=== PATIENT | female | born 2000 | race Hispanic/Latino ===

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

== ENCOUNTER → 2019-06-29 | Outpatient (CLI) | payer BC ==
[2019-06-29 11:56] LABS: HEMOGLOBIN 12.4 g/dl (12.0-15.5); MEAN CORPUSCULAR HEMOGLOBIN 30.9 pg (27.0-33.0); MEAN CORPUSCULAR HGB CONC 33.5 g/dl (32.0-36.5); MEAN CORPUSCULAR VOLUME 92.3 fl (80.0-96.0); PLATELET COUNT, AUTOMATED 249 10^3/uL (150-450); RED BLOOD COUNT 4.01 10^6/uL (4.00-5.40); WHITE BLOOD COUNT 5.9 10^3/uL (4.0-10.0)
[2019-06-29 12:36] LABS: ALBUMIN 3.9 GM/DL (3.2-5.2); ALT/SGPT 22 U/L (12-78); BILIRUBIN,TOTAL 0.5 MG/DL (0.2-1.0); BLOOD UREA NITROGEN 9 MG/DL (7-18); CALCIUM LEVEL 8.7 MG/DL (8.5-10.1); CARBON DIOXIDE LEVEL 26 MEQ/L (21-32); CHLORIDE LEVEL 108 MEQ/L (98-107); CREATININE FOR GFR 0.77 MG/DL (0.55-1.30); GLUCOSE, FASTING 85 MG/DL (70-100); POTASSIUM SERUM 4.2 MEQ/L (3.5-5.1); SODIUM LEVEL 141 MEQ/L (136-145); TOTAL PROTEIN 6.8 GM/DL (6.4-8.2); VITAMIN B12 LEVEL 584 PG/ML (247-911)
== END ==
LOC: M LAB 11:20
PROVIDERS: ATTEND Internal Medicine
DX: Z00.00 Encounter for general adult medical examination without abnormal findings (principal)

== ENCOUNTER 2019-08-18 16:57 | Day surgery (SDC) | payer BC ==
[~2019-08-18] VITALS: Ht 157.5 cm; Wt 58.6 kg
[2019-08-18] MEDS ORDERED: NEXP1IMP SC (17:04)
[2019-08-18] MEDS ORDERED: SERT50TA29 PO (17:04)
[2019-08-18 17:45] LABS: BASO # 0.1 10^3/uL (0.0-0.2); BASO % 0.4 % (0.0-1.0); EOS % 0.3 % (0.0-3.0); HEMATOCRIT 38.7 % (36.0-47.0); HEMOGLOBIN 13.3 g/dl (12.0-15.5); LYMPH # 2.6 10^3/uL (1.5-5.0); LYMPH % 18.4 % (24.0-44.0); MEAN CORPUSCULAR HEMOGLOBIN 31.9 pg (27.0-33.0); MEAN CORPUSCULAR HGB CONC 34.4 g/dl (32.0-36.5); MEAN CORPUSCULAR VOLUME 92.8 fl (80.0-96.0); MONO % 6.8 % (0.0-5.0); NEUTROPHILS # 10.3 10^3/uL (1.5-8.5); NEUTROPHILS % 73.7 % (36.0-66.0); PLATELET COUNT, AUTOMATED 234 10^3/uL (150-450); RED BLOOD COUNT 4.17 10^6/uL (4.00-5.40)
[2019-08-18 18:06] LABS: ALBUMIN 3.7 GM/DL (3.2-5.2); ALT/SGPT 16 U/L (12-78); BILIRUBIN,DIRECT 0.2 MG/DL (0.0-0.2); BILIRUBIN,TOTAL 0.7 MG/DL (0.2-1.0); BLOOD UREA NITROGEN 11 MG/DL (7-18); CALCIUM LEVEL 8.6 MG/DL (8.5-10.1); CARBON DIOXIDE LEVEL 27 MEQ/L (21-32); CHLORIDE LEVEL 107 MEQ/L (98-107); CREATININE FOR GFR 0.67 MG/DL (0.55-1.30); GLUCOSE, FASTING 90 MG/DL (70-100); LIPASE 93 U/L (73-393); POTASSIUM SERUM 3.9 MEQ/L (3.5-5.1); SODIUM LEVEL 141 MEQ/L (136-145); TOTAL PROTEIN 6.8 GM/DL (6.4-8.2)
[2019-08-18] MEDS ORDERED: ONDANSETRON 4MG/2ML VIAL (J2405) IV ONE (18:45)
[2019-08-18] MEDS ORDERED: KETOROLAC 30 MG/ML VIAL (J1885) IV ONE (18:45)
[2019-08-18] MEDS ORDERED: NS 1,000 ML IV ONE (18:45)
[2019-08-18] MEDS ORDERED: ISOVUE-370 76% 100ML VIAL (Q9967) As Ordered ONE (19:05)
[2019-08-18] MEDS ORDERED: SERTRALINE HCL 50 MG TAB PO SCH (21:00)
--- NOTE | 2019-08-18 21:02 | REPVR ---
PROCEDURE INFORMATION: Exam: CT Abdomen and pelvis with contrast Exam date and time: 08/18/2019 7:49 PM Clinical history: 19 years old, female; Abdominal pain; Localized; Right lower quadrant (rlq); Prior surgery; Additional info: Rlq tender, elev wbcs TECHNIQUE: Imaging protocol: Computed tomography of the abdomen and pelvis with intravenous contrast. Radiation optimization: All CT scans at this facility use at least one of these dose optimization techniques: automated exposure control; mA and/or kV adjustment per patient size (includes targeted exams where dose is matched to clinical indication); or iterative reconstruction. Contrast material: ISOVUE 370; Contrast volume: 100 ml; Contrast route: IV; COMPARISON: No relevant prior studies available. FINDINGS: Liver: Normal. No mass. Gallbladder and bile ducts: Normal. No calcified stones. No ductal dilation. Pancreas: Normal. No ductal dilation. Spleen: Normal. No splenomegaly. Adrenals: Normal. No mass. Kidneys and ureters: Normal. No hydronephrosis. Stomach and bowel: Unremarkable. No obstruction. No mucosal thickening. Appendix: The appendix demonstrates diffuse distention measuring up to 10 mm, consistent with acute appendicitis. There is no appendicolith. No abscess or periappendiceal fluid demonstrated. Intraperitoneal space: Unremarkable. No free air. No significant fluid collection. Vasculature: Unremarkable. No abdominal aortic aneurysm. Lymph nodes: Unremarkable. No enlarged lymph nodes. Bladder: Unremarkable as visualized. Reproductive: Functional cyst right ovary measures 2.5 cm. Bones/joints: Unremarkable. No acute fracture. Soft tissues: Unremarkable. IMPRESSION: Acute appendicitis. A critical call has been made to speak with the ordering physician/practitioner. This report will be amended once consultation has occurred. Electronically signed by: Chepe Martinez On 08/18/2019 21:02:40 PM
[2019-08-18] MEDS ORDERED: IBUP-1764 PO (22:10)
[2019-08-18] MEDS ORDERED: BUPIVACAINE HCL 0.25% 30 ML VIAL As Ordered ONE (22:28)
[2019-08-18] MEDS ORDERED: fentaNYL 100 MCG/2 ML INJECTION (J3010) As Ordered ONE (22:35)
[2019-08-18] MEDS ORDERED: MIDAZOLAM INJ 2 MG/2 ML VIAL (J2250) As Ordered ONE (22:35)
[2019-08-18] MEDS ORDERED: PROPOFOL 200 MG/20 ML VIAL As Ordered ONE (22:35)
[2019-08-18] MEDS ORDERED: ROCURONIUM BROMIDE 50 MG/5 ML VIAL As Ordered ONE (22:35)
[2019-08-18] MEDS ORDERED: dexameTHASONE 4 MG/ML 1ML VIAL (J1100) As Ordered ONE (22:35)
[2019-08-18] MEDS ORDERED: LIDOCAINE 2% INJ 100 MG/5 ML SDV (FOR ANES.) As Ordered ONE (22:35)
[2019-08-18] MEDS ORDERED: ONDANSETRON 4MG/2ML VIAL (J2405) As Ordered ONE (22:36)
[2019-08-18] MEDS ORDERED: cefoTEtan INJ 2GM VIAL (S0074 PER 500MG) As Ordered ONE (22:53)
[2019-08-18] MEDS ORDERED: PHENYLephrine HCL 500 MCG/5 ML (100MCG/ML) SYRINGE (J2370) As Ordered ONE (23:26)
[2019-08-18] MEDS ORDERED: ACETAMINOPHEN 1000MG 100ML IV BTL (OFIRMEV) (J0131 PER 10MG) As Ordered ONE (23:32)
[2019-08-18] MEDS ORDERED: GLYCOPYRROLATE INJ 0.2 MG/ML 2 ML VIAL As Ordered ONE (23:37)
[2019-08-18] MEDS ORDERED: NEOSTIGMINE 10 MG/10 ML VIAL (J2710) As Ordered ONE (23:37)
[2019-08-19] VITALS (9 sets, daily range): BP systolic 93–124; BP diastolic 50–81
[2019-08-19] MEDS ORDERED: MORPHINE 4 MG/ML 1ML VIAL/SYRINGE (J2270) IV PRN (00:15)
[2019-08-19] MEDS ORDERED: fentaNYL 100 MCG/2 ML INJECTION (J3010) IV PRN (00:15)
[2019-08-19] MEDS ORDERED: MORPHINE 10 MG/ML 1ML VIAL (J2270) IV PRN (00:15)
[2019-08-19] MEDS ORDERED: PERCOCET 5MG/325MG TAB PO PRN (00:15)
[2019-08-19] MEDS ORDERED: NORCO, ANEXSIA 5/325MG TABLET (HYDROcodone/ACETAMINOPHEN) PO PRN (00:15)
[2019-08-19] MEDS ORDERED: ACETAMINOPHEN TAB 650MG DOSE (2X325MG) PO PRN (00:15)
[2019-08-19] MEDS ORDERED: ONDANSETRON 4MG/2ML VIAL (J2405) IV PRN ×2 (00:15)
[2019-08-19] MEDS ORDERED: LR 1,000 ML IV SCH (00:15)
[2019-08-19] MEDS ORDERED: IBUPROFEN 400 MG TAB PO PRN (00:15)
[2019-08-19] MEDS ORDERED: PERCOCET 5MG/325MG TAB As Ordered ONE (00:44)
[2019-08-19] MEDS ORDERED: CEPACOL LOZENGE PO PRN (00:45)
[2019-08-19] MEDS: LR 1,000 ML IV SCH ×2 (01:00→10:14)
--- NOTE | 2019-08-19 16:24 | IPN ---
DATE: 08/19/2019 HISTORY: Patient is approximately 12 hours out from a laparoscopic appendectomy for acute appendicitis. The patient has done very well since surgery. She had taken no pain medications since surgery. She reports only a little soreness. She has had no nausea and has tolerated a diet well. Vital signs show that she has been afebrile. Her pulse is in the 70s to low 90s. Blood pressure is good. Intake and output shows that she has had 2900 mL of oral fluids today with 2200 of recorded urine output. PHYSICAL EXAMINATION: Shows a pleasant young woman lying quietly on the hospital bed. She is alert and oriented. Heart exam shows a regular rhythm. Lungs are clear. The abdomen shows active bowel sounds. She has three small dressings which are dry and intact. The abdomen is without undue tenderness. LABORATORY FINDINGS: She had a urine culture done in the emergency department which showed no growth. IMPRESSION: The patient is doing very well 12 hours postoperatively from her laparoscopic appendectomy. PLAN: The patient will be discharged today. She was counseled that she can take a regular diet as tolerated. She was advised to avoid any strenuous physical activity for two weeks. She can shower 24 hours after the procedure. I advised her that she can cover her wounds as desired for comfort. She should leave the Steri-Strips in place for at least the first week and can then remove them if they remain intact at that point. As she will be away at [facility], I will not require her to come back to my office for a routine follow-up visit, but I did advise her that if she has any problems such as fevers, chills, increasing abdominal pain or signs of a wound infection, that she should contact my office immediately. She was provided a slip for her school indicating that she had surgery and that taking a few days off for discomfort if necessary would be appropriate. KESHAV
--- NOTE | 2019-08-20 09:31 | RO ---
DATE OF PROCEDURE: 08/18/2019 PREOPERATIVE DIAGNOSIS: Acute appendicitis. POSTOPERATIVE DIAGNOSIS: Acute appendicitis. PROCEDURE PERFORMED: Laparoscopic appendectomy. SURGEON: Dr. Ryan Castaneda ANESTHESIA: General. INDICATIONS FOR PROCEDURE: The patient is a 19-year-old woman who presented to the emergency department with a 1-day history of abdominal pain. This was initially somewhat more vague and in the central portion of the abdomen and moved over the course of the night into the following day into the right lower quadrant. She had direct tenderness low in the right lower quadrant with a mildly elevated white count and a CT scan was interpreted as showing a dilated appendix consistent with acute appendicitis. She is now for laparoscopic appendectomy. OPERATIVE PROCEDURE: The patient was brought to the operating room and placed on the table in a supine position. She was placed under general endotracheal anesthesia. The patient's abdomen was prepped and draped in a sterile fashion. 0.25% Marcaine was infiltrated at each of the trocar sites as needed. A short transverse supraumbilical incision was made and deepened to the fascia. A Veress needle was inserted and after positive hanging drop test the abdomen was inflated with carbon dioxide gas. A short longitudinal midline incision was then made through the supraumbilical incision. A Davalos cannula was inserted and the abdomen was inflated with additional carbon dioxide. The laparoscope was placed. Initial examination showed a normal-appearing liver. Visualized portions of the small and large bowel appeared normal. The omentum was quite thin. The patient was tilted to a trended Trendelenburg position and rolled slightly to the left. The tip of the appendix was identified in the right lower quadrant and appeared hyperemic and somewhat distended. Two 5 mm trocars were placed in the left lower quadrant. Graspers were inserted. The appendix was elevated by the mesoappendix. The appendix appeared quite hyperemic and somewhat distended. The mesoappendix was divided using the hook cautery with care to cauterize the vascular structures to prevent any bleeding. The mesoappendix was peeled away down to the base of the appendix. The appendix was ligated with 2 1-0 Vicryl Endoloops placed approximately a centimeter apart and the appendix was divided between these two. The appendix was placed in an Endopouch. The appendiceal stump was cauterized. The right lower quadrant was irrigated and inspected and there was no evidence of bleeding. The patient was returned to a flat position. The abdomen was deflated and the trocars were removed. The appendix was recovered through the Davalos site. The fascia at the Davalos site was closed with interrupted simple sutures of #2-0 Vicryl. The skin incisions were all closed with buried #5-0 Vicryl. Additional Marcaine was infiltrated about the supraumbilical incision. Steri-Strips were applied followed by 2x2 dressings. The patient tolerated the procedure well without apparent complication. She was awakened in the operating room, extubated and moved to the recovery room in stable condition. KESHAV
== END 2019-08-19 13:30 | disposition home or self-care (01) ==
LOC: M ED 16:57 → M SDC 16:58 → M PED 08-19 01:30 → M SDC 08-19 13:30
PROVIDERS: ATTEND Surgery
DX: K35.890 Other acute appendicitis without perforation or gangrene (principal); F32.9 Major depressive disorder, single episode, unspecified; Z91.018 Allergy to other foods
CPT/HCPCS: 44970; 74177; 80048; 80076; 81001; 83690; 84702; 85025; 87086; 88304; 96361; 96374; 96375; 99284; J0131; J1100; J1885; J2250; J2370; J2405; J2710; J3010; Q9967

== ENCOUNTER → 2020-03-11 | Outpatient (CLI) | payer BC ==
[~2020-03-11] MED LIST: IBUP-1764 PO; NEXP1IMP SC; SERT50TA29 PO
[2020-03-11 10:54] LABS: BASO % 0.7 % (0.0-1.0); EOS # 0.2 10^3/uL (0.0-0.5); EOS % 3.7 % (0.0-3.0); HEMOGLOBIN 13.3 g/dl (12.0-15.5); LYMPH % 35.7 % (24.0-44.0); MEAN CORPUSCULAR HEMOGLOBIN 32.1 pg (27.0-33.0); MEAN CORPUSCULAR HGB CONC 34.1 g/dl (32.0-36.5); MEAN CORPUSCULAR VOLUME 94.2 fl (80.0-96.0); MONO # 0.5 10^3/uL (0.0-0.8); MONO % 8.5 % (0.0-5.0); NEUTROPHILS # 2.9 10^3/uL (1.5-8.5); NEUTROPHILS % 51.2 % (36.0-66.0); PLATELET COUNT, AUTOMATED 228 10^3/uL (150-450); RED BLOOD COUNT 4.14 10^6/uL (4.00-5.40); WHITE BLOOD COUNT 5.6 10^3/uL (4.0-10.0)
[2020-03-11 10:59] LABS: ALBUMIN 3.7 GM/DL (3.2-5.2); ALT/SGPT 22 U/L (12-78); BILIRUBIN,DIRECT < 0.1 MG/DL (0.0-0.2); BILIRUBIN,TOTAL 0.3 MG/DL (0.2-1.0); BLOOD UREA NITROGEN 8 MG/DL (7-18); CALCIUM LEVEL 8.5 MG/DL (8.5-10.1); CARBON DIOXIDE LEVEL 28 MEQ/L (21-32); CHLORIDE LEVEL 107 MEQ/L (98-107); CHOLESTEROL LEVEL 221 MG/DL (<200); CHOLESTEROL RISK RATIO 3.564 (<5); CREATININE FOR GFR 0.63 MG/DL (0.55-1.30); GLUCOSE, FASTING 88 MG/DL (70-100); HDL CHOLESTEROL 62 MG/DL (>40); LDL CHOLESTEROL 139 MG/DL (<100); NON-HDL-C 159 MG/DL; POTASSIUM SERUM 4.4 MEQ/L (3.5-5.1); SODIUM LEVEL 140 MEQ/L (136-145); TOTAL PROTEIN 6.6 GM/DL (6.4-8.2); TRIGLYCERIDES LEVEL 100 MG/DL (<150)
[2020-03-11 11:01] LABS: HCG, SERUM QUALITATIVE NEGATIVE (NEGATIVE)
== END ==
LOC: M PLALAB 08:10
PROVIDERS: ATTEND Psychiatry & Neurology Psychiatry
DX: F33.1 Major depressive disorder, recurrent, moderate (principal); F41.0 Panic disorder [episodic paroxysmal anxiety]

== ENCOUNTER → 2020-03-18 | Outpatient (REF) | payer BC ==
[2020-03-18 14:29] LABS: HEMATOCRIT 40.3 % (36.0-47.0); HEMOGLOBIN 13.8 g/dl (12.0-15.5); MEAN CORPUSCULAR HEMOGLOBIN 32.2 pg (27.0-33.0); MEAN CORPUSCULAR HGB CONC 34.2 g/dl (32.0-36.5); MEAN CORPUSCULAR VOLUME 94.2 fl (80.0-96.0); PLATELET COUNT, AUTOMATED 230 10^3/uL (150-450); RED BLOOD COUNT 4.28 10^6/uL (4.00-5.40); WHITE BLOOD COUNT 6.1 10^3/uL (4.0-10.0)
[2020-03-18 14:34] LABS: PERCENT SATURATION 15.3 % (13.2-45.0)
== END ==
LOC: M SFHCPLAZ 09:23
PROVIDERS: ATTEND Obstetrics & Gynecology
DX: N92.1 Excessive and frequent menstruation with irregular cycle (principal)

== ENCOUNTER → 2020-04-25 | Outpatient (REF) | payer BC ==
[2020-04-28 17:10] LABS: F208-IGE LEMON <0.10 kU/L (Class 0)
== END ==
LOC: M SFHCPLAZ 14:01
DX: T78.40XD Allergy, unspecified, subsequent encounter (principal)

== ENCOUNTER → 2020-05-11 | Outpatient (CLI) | payer BC | LOC: M LABSMTC 10:53 | PROVIDERS: ATTEND Family Medicine | DX: Z03.818 Encounter for observation for suspected exposure to other biological agents ruled out (principal) | CPT/HCPCS: C9803; U0003 ==

== ENCOUNTER → 2020-06-18 | Outpatient (REF) | payer BC ==
[2020-07-23 13:31] LABS: CHLAMYDIA DNA AMPLIFICATION NEGATIVE (NEGATIVE); GC DNA AMPLIFICATION NEGATIVE (NEGATIVE)
== END ==
LOC: M SFHCWAGY 10:34
PROVIDERS: ATTEND Advanced Practice Midwife
DX: Z12.4 Encounter for screening for malignant neoplasm of cervix (principal); N76.0 Acute vaginitis
CPT/HCPCS: 87491; 87591; G0123

== ENCOUNTER → 2020-08-25 | Outpatient (CLI) | payer BC | LOC: M LABSMTC 11:23 | PROVIDERS: ATTEND Family Medicine | DX: Z20.828 Contact with and (suspected) exposure to other viral communicable diseases (principal) | CPT/HCPCS: C9803; U0003 ==

== ENCOUNTER 2020-10-07 17:41 | Emergency (ER) | payer BC ==
[~2020-10-07] VITALS: Ht 157.5 cm; Wt 66.1 kg
[2020-10-07 17:43] VITALS: BP 110/65
== END 2020-10-07 18:29 | disposition home or self-care (01) ==
LOC: M ED 17:41
DX: S09.90XA Unspecified injury of head, initial encounter (principal); M54.2 Cervicalgia; W20.8XXA Other cause of strike by thrown, projected or falling object, initial encounter; Y92.9 Unspecified place or not applicable; Y93.9 Activity, unspecified; Y99.0 Civilian activity done for income or pay; F33.9 Major depressive disorder, recurrent, unspecified; F41.9 Anxiety disorder, unspecified; Z79.3 Long term (current) use of hormonal contraceptives

== ENCOUNTER → 2021-04-27 | Outpatient (REF) | payer BC ==
[2021-04-27 11:27] LABS: CHOLESTEROL LEVEL 223 MG/DL (<200); TRIGLYCERIDES LEVEL 81 MG/DL (<150)
[2021-04-27 11:28] LABS: CHOLESTEROL RISK RATIO 3.484 (<5); HDL CHOLESTEROL 64 MG/DL (>40); LDL CHOLESTEROL 143 MG/DL (<100); NON-HDL-C 159 MG/DL
[2021-04-27 12:17] LABS: HIV 1&2 SCREEN CENTAUR NEGATIVE (NEGATIVE)
== END ==
LOC: M SFHCPLAZ 08:29
PROVIDERS: ATTEND Family Medicine
DX: Z13.220 Encounter for screening for lipoid disorders (principal); Z11.4 Encounter for screening for human immunodeficiency virus [HIV]

== ENCOUNTER → 2021-06-12 | Outpatient (REF) | payer BC | LOC: M SFHCWAGY 13:04 | PROVIDERS: ATTEND Obstetrics & Gynecology | DX: R30.0 Dysuria (principal) ==